=== PATIENT | female | born 1965 | race Caucasian/White ===

== ENCOUNTER 2024-04-29 15:33 | Emergency (ER) | payer OTHER, SELFPAY ==
[2024-04-29] VITALS (7 sets, daily range): BP systolic 126–144; BP diastolic 76–87
--- NOTE | 2024-04-29 15:59 | ED.GENMED ---
Addendum entered and electronically signed by Amor Wade PA-C 05/02/24 07:06:
89 urine culture shows greater than 100,000 colony-forming units of Aerococcus. On Bactrim. Sensitivities pending.
Original Note:
History of Present Illness
General
Chief Complaint: Fall
Time Seen by Provider: 04/29/24 15:34
History of Present Illness
History of Present Illness:
Patient presents to the emergency department from a memory home after she had an unwitnessed fall and walked into a wall today. She is a new resident there, EMS states that she has only been there for a few days they state that she is mentally at
her baseline with profound confusion. Patient is not able to provide any history. Attempted to call her brother Malachi who is her primary contact without success. No further information available
Discussed case with Malachi, states it is normal behavior for her to sit on the floor. states she normally has her head down so it would make sense in a new facility that she may walk into a wall
Phy Exam
Physical Exam
Physical Exam:
GENERAL APPEARANCE: NAD, well developed/ well nourished, sitting with head looking down
EYES lids/conjunctiva normal
EARS/NOSE/THROAT Mucous membranes moist, uvula midline without oral pharyngeal erythema, exudate or swelling
HEAD/NECK there is soft tissue contusion to the right frontal region, no cervical or spinal ttp
RESPIRATORY respiratory effort normal, speaks in full sentences, no accessory muscle use. Lungs clear to auscultation without rhonchi, wheezes, rales
CARDIAC Regular rate and rhythm, no edema.
ABDOMINAL Soft, ND/NT.
BACK non tender
MUSCLES/EXTREMITIES No abnormal range of motion, no swelling.
SKIN Warm, there is no bruising or contusions other than her forehead.
NEUROLOGICAL profound confusion noted. Patient is awake and alert. She is moving all extremities.
Course
Orders/Labs/Results
Orders:
Orders
04/29/24 15:53
CT Head W/o Iv Contrast Urgent
Comment:
Reason For Exam: fall, frontal contusion
04/29/24 16:20
Urinalysis Reflex To Culture Urgent
Date Specimen was Collected: 04/29/24
Time Specimen was Collected: 16:06
Urine Microscopic Reflex Cult Urgent
Urine Culture Urgent
DAVID Source: U
Specimen Description:
Date Specimen was Collected: 04/29/24
Time Specimen was Collected: 16:06
04/29/24 16:48
Electrocardiogram (*1) Urgent
Reason for Study: Fatigue / Weakness
04/29/24 17:00
Basic Metabolic Panel Urgent
Complete Blood Count/With Diff Urgent
04/29/24 17:42
Sulfamethox./Trimethoprim Ds [Bactrim Ds 800 mg/160 mg] 1 tablet PO NOW STA
04/29/24 18:26
Basic Metabolic Panel Urgent
Abnormal Lab Results
04/29/24 04/29/24 04/29/24
16:20 17:00 18:26
MPV 11.0 H fL
(7.4-10.4)
Absolute Neuts (auto) 7.4 H 10^3/uL
(1.4-6.5)
Absolute Monos (auto) 1.0 H 10^3/uL
(0.1-0.6)
Lymphocytes % 19.1 L %
(20.5-51.1)
Glucose 124 H mg/dl 112 H mg/dl
(70-99) (70-99)
Urine Ketones Trace A
(Negative)
Leukocyte Esterase Rfl Trace A
(Negative)
Urine RBC 3-6 A /HPF
(0-2)
Urine WBC (Reflex) 11-15 A /HPF
(0-5)
Urine Bacteria (Reflex) Many A
(Negative)
04/29/24 17:00
04/29/24 18:26
Vital Signs
Initial and Last Documented VS:
Initial Vital Signs
BP
126/76
04/29/24 15:33
Last Documented Vital Signs
Temp Pulse Resp BP Pulse Ox
98.1 F 88 16 127/78 99
04/29/24 15:44 04/29/24 18:00 04/29/24 18:00 04/29/24 18:00 04/29/24 16:00
*Critical Care Note
Total Time (30-74mins, 75-104mins- exclusive of procedures): Not Applicable
ED Attending Note
ED Attending Note
ED Attending Note:
No significant traumatic injury identified. Patient possibly with UTI, unable to endorse whether or not she has urinary symptoms. Will cover with antibiotics. No evidence of sepsis. She is at her baseline mental status. Discussed with patient's
Malachi GASTON. Patient to be discharged back to facility
-
Portions of this chart may have been created with voice recognition software.� Occasional wrong word or��sound alike� substitutions may have occurred due to the inherent limitations of voice recognition software.
Discharge Plan
Departure
Patient Disposition: Fpc/SNF
Date of Disposition: 04/29/24
Time of Disposition: 18:49
Discharge Problem:
UTI (urinary tract infection), Head injury
Instructions: Head Injury in Adults (DC)
Prescriptions:
New
sulfamethoxazole-trimethoprim [Bactrim DS] 800-160 mg tablet
1 tab PO BID Qty: 14 0RF
Referrals:
Pablo Delarosa, [Family Provider] -
Interventions
Interventions:
*Risk Screen - Suicide Last Done: 04/29/24 15:42
*General Assessment Last Done: 04/29/24 15:45
*Neglect/Abuse Screening Last Done: 04/29/24 15:45
ED- Fall Risk Assessment Last Done: 04/29/24 15:52
*ED COVID-19 Vaccine History Last Done: 04/29/24 15:52
*Nursing Disposition Last Done: 04/29/24 19:21
ED-Musculoskeletal Assessment Last Done: 04/29/24 15:52
ED- Neurological Assessment Last Done: 04/29/24 15:52
ED-Skin Assessment Last Done: 04/29/24 15:52
Discharge Date and Time
Discharge Date/Time: 04/29/24 19:23
Print Language: SYRIAC
[2024-04-29 16:49] LABS: Urine Albumin Trace (Neg - Trace); Urine Bilirubin Negative (Negative); Urine Character Slightly Cloudy (Clear); Urine Color Amber; Urine Glucose Negative (Negative); Urine Ketone Trace (Negative); Urine Leukocyte Trace (Negative); Urine Nitrite Negative (Negative); Urine Occult Blood Negative (Negative); Urine Specific Gravity 1.025 (<1.030); Urine Urobilinogen Negative (Neg - 1+)
[2024-04-29 17:13] LABS: % Basophils 0.5 % (0-2); % Eosinophils 0.7 % (0-6); % Immature Granulocytes 0.3 % (0-0.5); % Lymphocytes 19.1 % (20.5-51.1); % Neutrophils 70.4 % (42.2-75.2); Absolute Basophils 0.1 10^3/uL (0-0.2); Absolute Eosinophils 0.1 10^3/uL (0-0.7); Absolute Neutrophils 7.4 10^3/uL (1.4-6.5); Hematocrit 42.4 % (37.0-47.0); Mean Corpuscular Hgb 28.9 pg (27.0-31.0); Mean Corpuscular Volume 87.4 fL (81.0-99.0); Nucleated Red Blood Cells % 0 %; Platelet Count 173 10^3/uL (130-400); Red Blood Cell Count 4.85 10^6/uL (4.20-5.40); Red Cell Dist. Width 12.6 % (11.5-14.5); White Blood Cell Count 10.5 10^3/uL (4.8-10.8)
[2024-04-29 17:33] LABS: Blood Urea Nitrogen 16 mg/dl (7-17); Calcium 9.5 mg/dl (8.4-10.2); Carbon Dioxide 24 mmol/L (22-30); Chloride 103 mmol/L (98-107); Glucose 124 mg/dl (70-99); Sodium 136 mmol/L (135-145); eGFR > 60.00
[2024-04-29 17:38] LABS: Urine Bacteria Many (Negative)
[2024-04-29 18:46] LABS: Blood Urea Nitrogen 16 mg/dl (7-17); Calcium 9.7 mg/dl (8.4-10.2); Carbon Dioxide 30 mmol/L (22-30); Chloride 101 mmol/L (98-107); Glucose 112 mg/dl (70-99); Potassium 3.9 mmol/L (3.5-5.1); Sodium 139 mmol/L (135-145); eGFR > 60.00
[2024-04-29] MEDS: BACTRIM DS 800 MG/160 MG 1 TABLET PO (18:52)
--- NOTE | 2024-04-29 19:03 | EDRN ---
REport given to ZULEYKA Acuna at [facility]. Waiting for transport arrangements to be made.
== END 2024-04-29 19:23 ==
LOC: EMR 15:33
PROVIDERS: EMERGENCY PHYSICIAN Emergency Medicine; FAMILY PHYSICIAN Family Medicine
DX: N39.0 Urinary tract infection, site not specified (principal); S09.90XA Unspecified injury of head, initial encounter; W19.XXXA Unspecified fall, initial encounter; F02.80 Dementia in other diseases classified elsewhere, unspecified severity, without behavioral disturbance, psychotic disturbance, mood disturbance, and anxiety; G31.09 Other frontotemporal neurocognitive disorder
CPT/HCPCS: 99284; 70450; 80048; 81003; 81015; 85025; 87077; 87086; 93005; 99282

== ENCOUNTER → 2024-05-26 11:00 | Outpatient (REF) | payer OTHER, SELFPAY ==
[2024-05-26 17:37] LABS: Urine Albumin Trace (Neg - Trace); Urine Bilirubin Negative (Negative); Urine Character Very Cloudy (Clear); Urine Color Yellow; Urine Glucose Negative (Negative); Urine Ketone Negative (Negative); Urine Leukocyte 2+ (Negative); Urine Nitrite Positive (Negative); Urine Occult Blood Negative (Negative); Urine Specific Gravity 1.025 (<1.030); Urine Urobilinogen Negative (Neg - 1+)
[2024-05-26 19:12] LABS: Urine Bacteria Many (Negative); Urine Red Blood Cell 0-2 /HPF (0-2); Urine White Cell 50-60 /HPF (0-5)
== END ==
LOC: OLABBH 11:00
PROVIDERS: ATTENDING PHYSICIAN Family Medicine
DX: R35.0 Frequency of micturition (principal)
CPT/HCPCS: 81003; 81015; 87077; 87086

== ENCOUNTER → 2024-09-02 13:31 | Outpatient (REF) | payer OTHER, SELFPAY ==
[2024-09-02 14:17] LABS: Urine Albumin 2+ (Neg - Trace); Urine Bilirubin Negative (Negative); Urine Character Cloudy (Clear); Urine Color Yellow; Urine Glucose Negative (Negative); Urine Ketone 3+ (Negative); Urine Leukocyte 3+ (Negative); Urine Nitrite Negative (Negative); Urine Occult Blood 1+ (Negative); Urine Specific Gravity 1.025 (<1.030); Urine Urobilinogen 1+ (Neg - 1+)
[2024-09-02 14:32] LABS: Urine Bacteria Many (Negative); Urine Red Blood Cell 0-2 /HPF (0-2); Urine Squamous Cell 0-2 /LPF (Few); Urine White Cell 0-2 /HPF (0-5)
== END ==
LOC: OLABBH 13:31
PROVIDERS: ATTENDING PHYSICIAN Family Medicine
DX: R35.0 Frequency of micturition (principal)
CPT/HCPCS: 81003; 81015; 87077; 87086; 87186

== ENCOUNTER 2024-09-09 18:56 | Inpatient (IN) | payer OTHER, SELFPAY ==
[2024-09-09] VITALS (8 sets, daily range): BP systolic 105–145; BP diastolic 71–95; BMI 25.9
--- NOTE | 2024-09-09 13:27 | ED.GENMED ---
History of Present Illness
General
Chief Complaint: Urinary Symptoms
Source: patient, records and [facility]
Exam Limitations: dementia
Time Seen by Provider: 09/09/24 13:19
Nursing documentation reviewed up to this point in time: agreed with
History of Present Illness
History of Present Illness:
58-year-old female with a past medical history of frontotemporal dementia, hypertension presents to the emergency room from [facility] memory care unit; she presents for evaluation of confusion. Patient cannot meaningfully provide history
due to her severe dementia. I spoke to the staff at [facility] to obtain collateral history: At baseline patient has significant dementia but is pleasantly confused and easily redirectable. On Sunday they noted that she was a bit more confused
and she has a history of increased confusion when she has urinary tract infections. She had a urinalysis sent off that was positive for infection and she was started on Macrobid Sunday night. Despite this she has had increasing confusion over the
past few days, increasingly confrontational, over the past 24 hours refusing to take her medications which ultimately prompted them to refer her to the emergency room for treatment. They have not noted any other symptoms such as vomiting, diarrhea,
fever, chills, respiratory issues.
Review of Systems
Review of Systems
Unable to obtain full review of systems at this time due to: dementia
All Other Systems: Not applicable
Phy Exam
Physical Exam
Physical Exam:
General: Awake, alert, oriented x 1 and anxious appearing
Head: Normocephalic, atraumatic
Eyes: Conjunctiva normal, EOMI, pupils equal round and reactive to light bilaterally
Throat: Airway intact, handling secretions
Neck: Trachea midline, supple without meningismus
Lungs: Clear to auscultation bilaterally, no wheezing, rales, rhonchi
Heart: Regular rate and rhythm, no murmurs, gallops, or rubs
Abd: Soft, non distended, mild tenderness in the suprapubic region
Neuro: Follows commands, moves all extremities equally without gross deficit
Extremities: Warm and well-perfused
Scores
Heart Failure Risk
Heart Failure Risk Score: Not Applicable
Heart Score for Chest Pain Patients
STEMI patient?: Not applicable
Withdrawal Assessment of Alcohol
Withdrawal Assessment Completed?: Not applicable
Course
Orders/Labs/Results
Orders:
Orders
09/09/24 13:49
Haloperidol Lactate [Haldol] 5 mg IM NOW STA
09/09/24 13:51
Electrocardiogram (*1) Urgent
Reason for Study: QTc Monitoring
CT Head W/o Iv Contrast Urgent
Comment:
Reason For Exam: confusion
EKG- Treatment ONCE
09/09/24 13:57
Complete Blood Count/With Diff Urgent
Comprehensive Metabolic Panel Urgent
Lactate Level [Lactic Acid] Urgent
TSH Reflex To Free T4 Urgent
Blood Culture Q30M
DAVID Source: Blood/Venous
Specimen Description:
Blood Culture Q30M
DAVID Source: Blood/Venous
Specimen Description:
09/09/24 14:25
Lorazepam [Ativan] 1 mg IV NOW STA
09/09/24 15:24
Straight cath- Treatment ONCE
09/09/24 15:31
Urinalysis Reflex To Culture Urgent
Date Specimen was Collected: 09/09/24
Time Specimen was Collected: 15:30
Urine Microscopic Reflex Cult Urgent
Urine Culture Urgent
DVAID Source: U
Specimen Description:
Date Specimen was Collected: 09/09/24
Time Specimen was Collected: 15:30
09/09/24 17:33
LevoFLOXacin 750 MG/150 ML [Levaquin] 750 mg in 150 ml IV NOW
Abnormal Lab Results
09/09/24 09/09/24
13:57 15:31
MPV 12.0 H fL
(7.4-10.4)
Absolute Neuts (auto) 8.2 H 10^3/uL
(1.4-6.5)
Neutrophils % 77.0 H %
(42.2-75.2)
Lymphocytes % 15.2 L %
(20.5-51.1)
Glucose 114 H mg/dl
(70-99)
Urine Ketones 3+ A
(Negative)
Urine Bacteria (Reflex) Moderate A
(Negative)
Urine Albumin (Reflex) 1+ A
(Neg - Trace)
09/09/24 13:57
09/09/24 13:57
Vital Signs
Initial and Last Documented VS:
Initial Vital Signs
Temp Pulse Resp BP Pulse Ox
36.5 C 85 18 135/95 99
09/09/24 12:53 09/09/24 12:53 09/09/24 12:53 09/09/24 12:53 09/09/24 12:53
Last Documented Vital Signs
Temp Pulse Resp BP Pulse Ox
36.5 C 85 18 105/71 99
09/09/24 12:53 09/09/24 12:53 09/09/24 12:53 09/09/24 16:03 09/09/24 16:30
MDM/Problems Addressed
Differential Diagnosis Includes:
Confusion: Brain bleed/stroke, UTI, electrolyte derangement, polypharmacy, delirium
MDM/Problems Addressed:
58-year-old female presents with increasing confusion in the setting of recently diagnosed UTI. Vitals and exam as above. Patient has advanced dementia and is agitated and refusing care on arrival--given Haldol for agitated delirium. Will place
an IV check labs including a CBC and a CMP, urinalysis, urine culture, blood cultures. Check CT head. Reassess after the above.
Labs reviewed: CBC and CMP unremarkable. Urinalysis cloudy with positive bacteria no pyuria but results complicated by the fact that she has been on couple days of oral antibiotics. CT head negative for any acute pathology. Given refusal take
oral meds and increased confusion will admit for treatment of UTI. Discussed case with hospitalist.
Chronic conditions affecting care:
Dementia
*Pulse Oximetry
Patient hypoxic: no
*Critical Care Note
Total Time (30-74mins, 75-104mins- exclusive of procedures): Not Applicable
Data Reviewed
Source: patient, records, ambulance crew and [facility]
Patient Management
Discussion with other providers: Hospitalist (Discussed with hospitalist) and senior living staff (Spoke directly with [facility] staff)
Escalation/DeEscalation of care consider admission/obs:
Admission indicated
ED Attending Note
-
Portions of this chart may have been created with voice recognition software.� Occasional wrong word or��sound alike� substitutions may have occurred due to the inherent limitations of voice recognition software.
Discharge Plan
Departure
Patient Disposition: Admit
Date of Disposition: 09/09/24
Time of Disposition: 17:41
Admit to doctor: Kait
Presentation/result/management discussed w/ accepting MD/DO: Hospitalist
Discharge Problem:
UTI (urinary tract infection), Encephalopathy
Prescriptions:
No Action
famotidine [Pepcid] 40 mg Tablet
40 mg PO DAILY
acetaminophen [Tylenol Extra Strength] 500 mg Tablet
1,000 mg PO Q8HPRN PRN (Reason: mild pain)
venlafaxine [Effexor] 50 mg Tablet
50 mg PO BID
ibuprofen [Advil] 200 mg Tablet
200 mg PO BID
metoprolol succinate [Toprol XL] 25 mg Tablet Extended Release 24 Hr
25 mg PO DAILY
memantine 10 mg Tablet
10 mg PO BID
nitrofurantoin monohyd/m-cryst [Macrobid] 100 mg Capsule
100 mg PO BID
Rx Instructions:
for 7 days starting 09/05/24
melatonin 10 mg Tablet
10 mg PO HS
Referrals:
NONE,* [Family Provider] -
Interventions
Interventions:
*Risk Screen - Suicide Last Done: 09/09/24 12:53
*General Assessment Last Done: 09/09/24 12:53
*Neglect/Abuse Screening Last Done: 09/09/24 12:53
*ED- Fall Risk Assessment Last Done: 09/09/24 12:53
*ED COVID-19 Vaccine History Last Done: 09/09/24 12:53
ED-Female Genitourinary Assessment Last Done: 09/09/24 12:58
Discharge Date and Time
Print Language: UPPER SORBIAN
[2024-09-09] MEDS: HALDOL 5 MG IM (13:54)
[2024-09-09] MEDS: ATIVAN 1 MG IV (14:30)
[2024-09-09 14:37] LABS: % Basophils 0.7 % (0-2); % Eosinophils 0.7 % (0-6); % Immature Granulocytes 0.4 % (0-0.5); % Lymphocytes 15.2 % (20.5-51.1); Absolute Basophils 0.1 10^3/uL (0-0.2); Absolute Eosinophils 0.1 10^3/uL (0-0.7); Absolute Lymphocytes 1.6 10^3/uL (1.2-3.4); Absolute Monocytes 0.6 10^3/uL (0.1-0.6); Absolute Neutrophils 8.2 10^3/uL (1.4-6.5); Hematocrit 42.2 % (37.0-47.0); Hemoglobin 14.5 g/dL (12.0-16.0); Mean Corp Hgb Conc. 34.4 g/dL (33.0-37.0); Mean Corpuscular Hgb 29.2 pg (27.0-31.0); Mean Corpuscular Volume 84.9 fL (81.0-99.0); Nucleated Red Blood Cells % 0 %; Platelet Count 151 10^3/uL (130-400); Red Blood Cell Count 4.97 10^6/uL (4.20-5.40); Red Cell Dist. Width 12.6 % (11.5-14.5); White Blood Cell Count 10.6 10^3/uL (4.8-10.8)
[2024-09-09 14:48] LABS: Lactic Acid 1.3 mmol/L (0.7-2.0)
[2024-09-09 14:52] LABS: ALT (SGPT) 13 U/L (0-35); AST (SGOT) 20 U/L (14-36); Albumin 4.5 g/dl (3.5-5.0); Alkaline Phosphatase 70 U/L (38-126); Blood Urea Nitrogen 11 mg/dl (7-17); Calcium 9.8 mg/dl (8.4-10.2); Carbon Dioxide 23 mmol/L (22-30); Chloride 106 mmol/L (98-107); Glucose 114 mg/dl (70-99); Potassium 4.1 mmol/L (3.5-5.1); Sodium 140 mmol/L (135-145); Total Bilirubin 1.1 mg/dl (0.2-1.3); eGFR > 60.00
[2024-09-09 15:18] LABS: TSH Reflex To Free T4 0.91 uIU/ml (0.47-4.68)
[2024-09-09 16:24] LABS: Urine Albumin 1+ (Neg - Trace); Urine Bilirubin Negative (Negative); Urine Character Slightly Cloudy (Clear); Urine Color Yellow; Urine Glucose Negative (Negative); Urine Ketone 3+ (Negative); Urine Leukocyte Negative (Negative); Urine Nitrite Negative (Negative); Urine Occult Blood Negative (Negative); Urine Urobilinogen Negative (Neg - 1+)
[2024-09-09 17:15] LABS: Urine Amorphous Seen; Urine Bacteria Moderate (Negative); Urine Red Blood Cell 0-2 /HPF (0-2); Urine Squamous Cell 0-2 /LPF (Few)
[2024-09-09] MEDS: LEVAQUIN 150 IV (17:43)
--- NOTE | 2024-09-09 18:11 | HPS.HSE ---
Family Physician
-
Family Physician: * NONE
Chief Complaint
-
confusion
History of Present Illness
58-year-old female past medical history of frontotemporal dementia, hypertension, presenting to the emergency room from [facility] for confusion. Cannot provide history due to severe dementia. Has severe dementia at baseline is pleasantly
confused and easily redirectable. On Sunday day noticed that she was a bit more confused and had increased confusion which happens when she gets UTIs. She had urinalysis that is positive for infection and was started on Macrobid 4 days ago. She
has become increasingly confrontational. No fevers, chills, vomiting or shortness of breath.
Medical History
Past Medical History
Past Medical History: Reports Other (frontotemporal dementia, hypertension)
Past Surgical History: Reports None
Social History
Tobacco: Non-smoker
Alcohol: None
Drug: None
Family History
Family History: Not pertinent
Allergies / Home Medications
Allergies reflects when Allergies were last updated in [employer].
Home Medications with original date entered in [employer]
Allergy/Medication List:
Allergies
Allergy/AdvReac Type Severity Reaction Status Date / Time
acetaminophen [From Percocet] Allergy Unknown Unknown Verified 04/29/24 15:36
ceftriaxone Allergy Unknown Unknown Verified 04/29/24 15:36
oxycodone [From Percocet] Allergy Unknown Unknown Verified 04/29/24 15:36
Home Medications
acetaminophen 500 mg tablet (Tylenol Extra Strength) 1,000 mg PO Q8HPRN PRN mild pain 09/09/24
famotidine 40 mg tablet (Pepcid) 40 mg PO DAILY 09/09/24
ibuprofen 200 mg tablet (Advil) 200 mg PO BID 09/09/24
melatonin 10 mg tablet 10 mg PO HS 09/09/24
memantine 10 mg tablet 10 mg PO BID 09/09/24
metoprolol succinate 25 mg tablet,extended release 24 hr (Toprol XL) 25 mg PO DAILY 09/09/24
nitrofurantoin monohydrate/macrocrystals 100 mg capsule (Macrobid) 100 mg PO BID 09/09/24
venlafaxine 50 mg tablet 50 mg PO BID 09/09/24
Review of Systems
-
History Source: Patient
A 12 point ROS was completed and negative except as noted: Yes
Constitutional: Reports No Symptoms
EENT: Reports No Symptoms
Respiratory: Reports No Symptoms
Cardiac: Reports No Symptoms
Abdomen/GI: Reports No Symptoms
: Reports No Symptoms
Musculoskeletal: Reports No Symptoms
Skin: Reports No Symptoms
Neurological: Reports No Symptoms
Endocrine: Reports No Symptoms
Hematologic/Lymphatic: Reports No Symptoms
Psych: Reports No Symptoms
Physical Exam
Vital Signs
Vital Signs
Temp Pulse Resp BP Pulse Ox
97.7 F 85 18 139/88 99
09/09/24 12:53 09/09/24 12:53 09/09/24 12:53 09/09/24 17:42 09/09/24 17:45
Physical Exam
General: Well Developed, Well Nourished and No Apparent Distress
HEENT: NormoCephalic, Moist mucous membranes and Atraumatic
Respiratory: Clear
Cardiac: S1/S2 and Regular Rhythm; No Murmur or Rub
GI: Soft, Non Tender, Non Distended and Normal Bowel Sounds; No Organomegaly
Rectal: Deferred by Provider
Musculoskeletal: No Clubbing, No Cyanosis and No Edema
Skin: No Rash
Neuro: Nonfocal/grossly intact
Laboratory Results
-
09/09/24 13:57
09/09/24 13:57
Laboratory Results
Lactic Acid 1.3 mmol/L (0.7-2.0) 09/09/24 13:57
Total Bilirubin 1.1 mg/dl (0.2-1.3) 09/09/24 13:57
AST 20 U/L (14-36) 09/09/24 13:57
ALT 13 U/L (0-35) 09/09/24 13:57
Alkaline Phosphatase 70 U/L (38-126) 09/09/24 13:57
Data Reviewed
-
Lab Data: Labs Reviewed by me
Old Records: Reviewed
Impression/Plan
-
IMPRESSION:
PLAN:
# Acute metabolic encephalopathy likely secondary to urinary tract infection
# History of ESBL Klebsiella
- UA slightly cloudy, moderate bacteria, 3-5 WBC
- Urinalysis may normal after receiving Macrobid
-History of prior ESBL Klebsiella which was only sensitive to ertapenem, Bactrim and Zosyn
-Check urine culture
-Blood cultures pending
- IV fluids
- Given Levaquin in ER will switch to ertapenem
- Given Haldol and Ativan
Frontotemporal dementia
- Continue memantine, venlafaxine
Essential hypertension
- Continue metoprolol
Full code
DVT prophylaxis�heparin
Regular diet
[2024-09-09] MEDS: FLUSH (NSS) 1 FLUSH IV (21:37)
[2024-09-09] MEDS: NSS 1000 IV (22:13)
[2024-09-09] MEDS: NAMENDA 10 MG PO (22:13)
[2024-09-09] MEDS: MELATONIN 10 MG PO (22:13)
[2024-09-09] MEDS: MOTRIN PO (22:13)
[2024-09-09] MEDS: HEPARIN SC ×2 (22:14→22:20)
--- NOTE | 2024-09-09 23:00 | PTCARENOTE ---
Pt admitted to 412-2 from ED. Pulled over to bed. Oriented to self, drowsy. 1:1 at bedside. Call ni within reach.
[2024-09-09] MEDS: INVANZ 60 MG IV (23:58)
[2024-09-10 07:25] VITALS: BP 151/82
[2024-09-10 07:45] LABS: % Basophils 0.7 % (0-2); % Eosinophils 1.4 % (0-6); % Immature Granulocytes 0.2 % (0-0.5); % Lymphocytes 18.8 % (20.5-51.1); % Monocytes 9.1 % (1.7-9.3); % Neutrophils 69.8 % (42.2-75.2); Absolute Basophils 0.1 10^3/uL (0-0.2); Absolute Eosinophils 0.1 10^3/uL (0-0.7); Absolute Lymphocytes 1.7 10^3/uL (1.2-3.4); Absolute Monocytes 0.8 10^3/uL (0.1-0.6); Absolute Neutrophils 6.3 10^3/uL (1.4-6.5); Hematocrit 40.2 % (37.0-47.0); Hemoglobin 13.9 g/dL (12.0-16.0); Mean Corp Hgb Conc. 34.6 g/dL (33.0-37.0); Mean Corpuscular Volume 83.9 fL (81.0-99.0); Nucleated Red Blood Cells % 0 %; Red Blood Cell Count 4.79 10^6/uL (4.20-5.40); Red Cell Dist. Width 12.7 % (11.5-14.5)
[2024-09-10 08:20] LABS: ALT (SGPT) 11 U/L (0-35); AST (SGOT) 18 U/L (14-36); Albumin 3.7 g/dl (3.5-5.0); Alkaline Phosphatase 61 U/L (38-126); Blood Urea Nitrogen 9 mg/dl (7-17); Calcium 9.3 mg/dl (8.4-10.2); Carbon Dioxide 23 mmol/L (22-30); Chloride 108 mmol/L (98-107); Estimated Creatinine Clearance 91 ml/min; Glucose 93 mg/dl (70-99); Potassium 4.2 mmol/L (3.5-5.1); Sodium 140 mmol/L (135-145); Total Bilirubin 0.9 mg/dl (0.2-1.3); Total Protein 5.9 g/dl (6.3-8.2); eGFR > 60.00
[2024-09-10] MEDS: NAMENDA 10 MG PO ×2 (08:46→19:39)
[2024-09-10] MEDS: PEPCID 40 MG PO (08:46)
[2024-09-10] MEDS: MOTRIN 200 MG PO ×2 (08:46→19:39)
[2024-09-10] MEDS: HEPARIN 5000 UNITS SC (08:46)
[2024-09-10 10:09] LABS: COVID-19 Antigen Negative (Negative)
--- NOTE | 2024-09-10 10:44 | CM ---
Addendum entered by Shane Benites 09/10/24 15:50:
Per nurse, patient poss for d/c tomorrow according to hospitalist. Patient requiring one to one due to pulling out IV, angry and wanting to leave
Clarified w/ Kaykay/nurse at [facility] that patient will need to be off of the one to one for 24 hours
Addendum entered by Shane Benites 09/10/24 11:09:
CM received call from Kaykay/nurse at [facility], asking for updates but was told by nurse she was unable as she is not listed as a contact. Patient currently has self listed as contact. CM was informed that patient has a brother who is the
POA, Malachi ([phone]).
CM spoke w/ Malachi, confirmed he is the POA and will send CM an email w/ paperwork. In the meantime, Malachi granted permission for Kaykay to be listed as an additional contact for the care team to communicate with. Malachi asking for hospitalist to
give him a call as he has some concern about one of patient's medications. TT Dr Aubree Taylor to make aware.
Updated Lizzette/admissions to add contacts
Original Note:
Initial assessment completed. Patient is a resident at [facility]. CM spoke w/ Indy/LOTTIE for information. Patient is a 58-year-old female past medical history of frontotemporal dementia, hypertension, presenting to the
emergency room from [facility] for confusion.
Per Indy, patient is independent w/ walking, no device required. Assisted w/ personal care and toileting, patient is able to brush her teeth independently, can follow basic directions. Patient's baseline is AOX1 but is considered higher
functioning.
PCP: James Barrientos
Pharmacy: [facility]
Report (LOTTIE): [phone]

Plan: Anticipate return to facility. CM will watch for any needs
[2024-09-10] MEDS: NSS 1000 IV (11:24)
--- NOTE | 2024-09-10 14:26 | PTCARENOTE ---
Addendum entered by Moraima White RN 09/10/24 17:37:
Patient became agitated and angry and insistent on going home. Patient pulled out one IV line. MD notified. 2 mg of IV Haldol given as per order. Approximately 45 minutes later, patient attempting to get OOB and leave and adamant that she wants to
leave. Attempted to calm patient down with no success. Two nurses were in room when patient became upset, agitated and aggressive. MD notified. Medications administered as ordered.
Original Note:
Patient sleeping throughout the day. Patient only oriented to name. Reoriented as needed. Patient answers yes and no to questions. Patient mostly nonverbal. Bed alarm maintained. Patient on one to one at this time that will be discontinued at 1500.
Patient without attempts to pull lines.
--- NOTE | 2024-09-10 14:32 | W.PN.HOSP.TC ---
Addendum entered and electronically signed by Jac Taylor MD 09/10/24 18:19:
Patient had a code purple at 1700 as was getting aggressive and angry
Patient was provided Haldol 1 mg just over before, required to be given 2 more milligrams
Psychiatry informed about the update
Original Note:
Today's Communication/Plan
-
ct a/p
switch invanz to rocephin
add risperidal prn
Assessment / Plan
Assessment / Plan
1. History of frontotemporal dementia
Behavioral issue
- Patient brought in for being confrontational/agitated, currently in [facility] memory care unit
- Currently on memantine by primary neurology, cannot
- Discussed with patient brother who said patient was on high dose of Risperdal which was discontinued
- There was concern of UTI as well although UA is not significantly concerned
- After discussion starting patient on Risperdal half milligram twice daily as needed for agitation episode
2. Rule out UTI
- Urinalysis showing only bacteria, not 3-5 WBC
- Patient was complaining some left lower abdominal discomfort, a CT abdomen pelvis showed questionable bladder wall thickening
- With history of ESBL organism patient was given ertapenem, no clear reason to consider there is a MDR organism UTI at this time around
- Giving empiric Rocephin and likely can be discontinued at discharge
3. Essential hypertension
- Maintained on home dose of metoprolol
4. Depression
- maintain on effexor
DVT PPX - heparin subq
Full code
care plan discussed with patient brother over the phone
Anticipated Discharge: Within 24 hours
Subjective/Interval History
-
Date of Service: September 10, 2024
Comfortably in bed
Bed sitter at bedside, no reported agitation
Afebrile overnight
Some left lower quadrant discomfort
Objective Data
-
Labs:
Laboratory Results
09/10/24
07:08
WBC 9.0
Hgb 13.9
Hct 40.2
Plt Count
Sodium 140
Potassium 4.2
Chloride 108 H
Carbon Dioxide 23
BUN 9
Creatinine 0.6
Glucose 93
Calcium 9.3
Total Bilirubin 0.9
AST 18
ALT 11
Alkaline Phosphatase 61
Vital Signs:
Vital Signs
Temp Pulse Resp BP Pulse Ox
98.6 F 85 16 151/82 97
09/10/24 07:25 09/10/24 07:25 09/10/24 07:25 09/10/24 07:25 09/10/24 07:25
I&O
09/09/24 09/10/24 09/11/24
06:59 06:59 06:59
Intake Total 640 / 640
Balance 640 / 640
Review of Systems
-
Unable to obtain full review of systems at this time due to: Dementia
Physical Exam
-
General: No Apparent Distress and Comfortable
HEENT: Negative Oxygen
Respiratory: Clear to Auscultation
Cardiac: Regular Rhythm and S1/S2; Negative Murmur or Rub
GI: Soft and Tender (LLQ)
Musculoskeletal: No Edema
Neuro: No Motor Deficits
Psych: Calm
[2024-09-10] MEDS: RISPERDAL ORAL SOLUTION 0.5 MG PO ×2 (15:25→19:40)
[2024-09-10 15:57] VITALS: BP 141/67
[2024-09-10] MEDS: HALDOL 1 MG IV ×2 (16:26→22:27)
[2024-09-10] MEDS: STERILE WATER FOR INJECTION 2.1 ML IM ×2 (17:01→23:37)
[2024-09-10] MEDS: ZYPREXA 10 MG IM ×2 (17:01→23:37)
[2024-09-10] MEDS: HALDOL 2 MG IV (17:05)
[2024-09-10] MEDS: HEPARIN SC (19:39)
[2024-09-10] MEDS: MELATONIN 10 MG PO (21:24)
--- NOTE | 2024-09-10 22:00 | PTCARENOTE ---
Addendum entered by Latonya White RN 09/11/24 00:42:
Pt still frequently getting OOB, ambulating hallway trying to leave and attempting to get in roommates bed. Pt becoming unsteady, EARL Herring notified and ordered IM zyprexa. Medication given. Bed alarm in place.
Original Note:
Pt getting OOB frequently and unable to be redirected. Pt getting agitated and stating she 'wants to leave,' emotional support provided. EARL Herring notified and ordered stat dose IV Haldol. bed alarm in place.
--- NOTE | 2024-09-10 23:24 | W.PN.UPDATE ---
Update Note
Progress Note Update
Patient had multiple episodes of agitation and trying to leave during the night. Staff not able to redirect. 1mg of IV Haldol x2, one time Zyprexa 10mg given, and soft restraint applied for the patient`s safety.
[2024-09-10 23:51] VITALS: BP 148/96
--- NOTE | 2024-09-11 01:21 | PTCARENOTE ---
Pt continues to get OOB, going into hallway to try to leave, agitated and unable to be redirected. Nevaeh ELLIOTT made aware, orders in for 1 mg Haldol IV and upper limb restraints.
[2024-09-11] MEDS: HALDOL 1 MG IV (01:47)
--- NOTE | 2024-09-11 06:27 | DOWNTIME ---
There was a [email or web address] Downtime on 09/11/2024 from 0200 to 09/12/2023 at 0318 . Downtime documentation of patient's care, including medication administrations, has been reconciled in the electronic record per guidelines. Refer to the
patient's paper chart under the miscellaneous tab to see printed paper medication records and downtime forms.
[2024-09-11 07:14] VITALS: BP 143/87
[2024-09-11] MEDS: NAMENDA 10 MG PO (07:29)
[2024-09-11] MEDS: HEPARIN 5000 UNITS SC (07:29)
[2024-09-11] MEDS: MOTRIN 200 MG PO (07:29)
[2024-09-11] MEDS: PEPCID 40 MG PO (07:29)
[2024-09-11] MEDS: RISPERDAL ORAL SOLUTION 0.5 MG PO (07:30)
[2024-09-11] MEDS: NSS IV (07:41)
[2024-09-11 08:54] LABS: Hematocrit 39.3 % (37.0-47.0); Hemoglobin 14.2 g/dL (12.0-16.0); Mean Corp Hgb Conc. 36.1 g/dL (33.0-37.0); Mean Corpuscular Hgb 29.9 pg (27.0-31.0); Mean Corpuscular Volume 82.7 fL (81.0-99.0); Mean Platelet Volume 11.9 fL (7.4-10.4); Platelet Count 143 10^3/uL (130-400); Red Blood Cell Count 4.75 10^6/uL (4.20-5.40); Red Cell Dist. Width 12.7 % (11.5-14.5)
--- NOTE | 2024-09-11 09:56 | W.PN.UPDATE ---
Update Note
Progress Note Update
reviewed chart will see patient shortly. noted she had been on effexor 50 mg bid. called pharmacy to make sure this was recent (formerly [facility] pharmacy services her memory care unit). she was on it up until admit. 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
perhaps that is contributing to inc agitation here . will restart 75 mg daily extended release and can continue taper from there.
--- NOTE | 2024-09-11 10:39 | CM ---
Addendum entered by TREV Haile 09/11/24 11:37:
IMM completed, reviewed with Kaykay. On chart.
Original Note:
Received notification that patient is medically stable for discharge. Placed a call to Kaykay at [facility] [phone] who confirmed that she can take patient back today. Report [phone]
Will complete medical necessity for transfer and transfer sheet.
Plan: Case management will continue to follow and assist with discharge planning. Back to [facility] today.
--- NOTE | 2024-09-11 10:57 | W.PN.HOSP.TC ---
Today's Communication/Plan
-
Discharge memory care today
Assessment / Plan
Assessment / Plan
1. History of frontotemporal dementia
Behavioral issue
- Patient brought in for being confrontational/agitated, currently in [facility] memory care unit
- Currently on memantine by primary neurology, cannot
- Discussed with patient brother who said patient was on high dose of Risperdal which was discontinued
- There was concern of UTI as well although UA is not significantly concerned
- After discussion starting patient on Risperdal half milligram twice daily as needed for agitation episode
2. Ruled out UTI
- Urinalysis showing only bacteria, not 3-5 WBC
- Patient was complaining some left lower abdominal discomfort, a CT abdomen pelvis showed questionable bladder wall thickening
- With history of ESBL organism patient was given ertapenem, no clear reason to consider there is a MDR organism UTI at this time around
- Giving empiric Rocephin and likely can be discontinued at discharge
3. Essential hypertension
- Maintained on home dose of metoprolol
4. Depression
- maintain on effexor
DVT PPX - heparin subq
Full code
care plan discussed with patient brother over the phone
Anticipated Discharge: Today
Subjective/Interval History
-
Date of Service: September 11, 2024
Patient seen and examined at bedside, currently on soft restraint, cannot provide interval history.
Objective Data
-
Labs:
Laboratory Results
09/11/24 09/11/24
08:33 09:44
WBC 9.0
Hgb 14.2
Hct 39.3
Plt Count 143
Sodium Cancelled Pending
Potassium Cancelled Pending
Chloride Cancelled Pending
Carbon Dioxide Cancelled Pending
BUN Cancelled Pending
Creatinine Cancelled Pending
Glucose Cancelled Pending
Calcium Cancelled Pending
Vital Signs:
Vital Signs
Temp Pulse Resp BP Pulse Ox
98 F 95 16 143/87 99
09/11/24 07:14 09/11/24 07:14 09/11/24 07:14 09/11/24 07:14 09/11/24 07:14
I&O
09/10/24 09/11/24 09/12/24
06:59 06:59 06:59
Intake Total 640 / 640 720 / 720
Balance 640 / 640 720 / 720
Physical Exam
-
General: Well Nourished and Other (Not oriented)
HEENT: Normocephalic, Atraumatic, Moist Mucous Membranes, No Ptosis, PERRLA and Nose Appears Normal
Respiratory: Clear to Auscultation and Non Labored Respirations
Cardiac: Regular Rhythm and S1/S2
Breast: Deferred by me
GI: Soft, Nontender, Nondistended and Normal Bowel Sounds
Genito-urinary: No Costovertebral Tender
Musculoskeletal: No Clubbing, No Cyanosis and No Edema
Skin: Warm
Neuro: Oriented and AO x 3
Psych: Confused and Agitated
[2024-09-11 11:09] VITALS: BP 120/86
[2024-09-11] MEDS: EFFEXOR XR 75 MG PO (11:13)
--- NOTE | 2024-09-11 11:24 | PTCARENOTE ---
Addendum entered by Moraima White RN 09/11/24 13:23:
Peripheral IV removed. Ambulance transport scheduled for 1330. [facility] aware that patient will be returning today.
Original Note:
Patient ambulating in halls independently with staff member. No need for sedatives or other medications prn. Urine culture negative for growth. Vital signs stable. MD in agreement that patient medically stable for discharge back to [facility]
today. engineering design manager made aware. Transportation arranged for 130pm today. Discharge orders in system.
--- NOTE | 2024-09-11 12:02 | CON.MD ---
Consultation - Medical
-
patient seen chart reviewed. discussed with nursing. the patient is a 58 year old woman who was admitted to [facility] of confusion and change in mental status. she has hx of fronto temporal dementia and head injury in apr. she is normally
pleasantly confused but of late she had become more irritable. she was noted to have uti a past source of change in mental status several days ago but at present her urine cultures and blood culture have shown no growth. she resides in a memory
care unit locally. she has had periods of agitation here as she wants to be up and about and there is fear of her falling. she had received prn haldol for agitation yesterday. this morning when i saw her she was walking about the unit with a
assisted living nursing director monitoring and was cooperative and relatively pleasant. her current meds include risperdal o.5 mg bid memantine 10 mg and melatonin 10 mg po q hs. i check with pharmacy which was filling [facility] [place] [facility] and she was taking effexor
50mg bid which was not continued here at . the patient is unable to give any information given dementia which is severe.
past psych hx dementia head injury
medical patient w hx uti there is urine culture + for klebsiella in the recent past but most recent shows no growth. cat scan brain with no new findings. cbc ok chem ok today's chemistry reads 'pending' ecg w qtc 462 read as prolonged qtc. hx
gerd htn
substance abuse none
fh non contributory
social resides at [facility]. patient did tell me she 'was' . she resides in [place] care at a local [facility] alert but not oriented to place or time. speech and thought process disorganized. patient occasionally answered questions but not clear whether answers were accurate. she was pleasant and calm when seen by this food writer. cognition impaired
insight judgment lacking
dx dementia with behavioral disturbance
plan since patient now is calm would not change meds she is currently prescriged except the folllowing: restarted effexor at a slightly lower dose (she was on 50 mg bid of immediate release) and now ordered at total 75 mg extended release daily .
the reason it was restarted is that stopping effexor can cause an uncomfortable wd syndrome which could possibly have contributed to her agitation noted here. nursing has been in touch with her facility which is willing to take her back as there
is at this point no medical reason for her to be here and she would be more comfortable in a setting familiar to her and tailored to her needs. psych will sign off.
--- NOTE | 2024-09-11 14:15 | W.DCSUMMARY ---
Discharge Summary
Discharge Data
Date of Admission: 09/09/24
Date of Discharge: 09/11/24
-
Pending Results: No
Hospital Course
Hospital course
Admitted with worsening mental status, urinalysis shows no evidence of UTI.
Seen by psych, adjusted psych medications.
Will be discharged back to memory care
During hospitalization patient was treated from the [facility]
1. History of frontotemporal dementia
Behavioral issue
- Patient brought in for being confrontational/agitated, currently in [facility] memory care unit
- Currently on memantine by primary neurology, cannot
- Discussed with patient brother who said patient was on high dose of Risperdal which was discontinued
- There was concern of UTI as well although UA is not significantly concerned
- After discussion starting patient on Risperdal half milligram twice daily as needed for agitation episode
2. Ruled out UTI
- Urinalysis showing only bacteria, not 3-5 WBC
- Patient was complaining some left lower abdominal discomfort, a CT abdomen pelvis showed questionable bladder wall thickening
- With history of ESBL organism patient was given ertapenem, no clear reason to consider there is a MDR organism UTI at this time around
- Giving empiric Rocephin and likely can be discontinued at discharge
3. Essential hypertension
- Maintained on home dose of metoprolol
4. Depression
- maintain on effexor
DVT PPX - heparin subq
Full code
care plan discussed with patient brother over the phone
Anticipated Discharge: Today
Total time spent on today's encounter was 40 minutes which included time spent in counseling the patient/family regarding diagnosis and treatment plan as listed above, goals of care, and symptom management. Case was discussed with nursing staff,
specialists, and care coordinators/case management. All labs and imaging personally reviewed by me. Remainder the time spent in detailed review of previous records, lab data, imaging, and other medical provider documentation.
Anticipated Discharge: Today
Discharge Plan
-
Patient Disposition: Long Term/SNF
Discharge Diagnosis/Procedures: Frontotemporal dementia.
Combative behavior.
Hypertension.
Depression
Condition: Fair
Diet: Regular
Activity: With assistance and As tolerated
Referrals:
James Barrientos MD [Family Provider] -
Rommel Spears MD [Active] -
Additional Discharge Medication Instructions: Effexor 75 mg extended release may need to be tapered slowly until stop completely
Prescriptions:
New
risperidone 0.5 mg tablet
0.5 mg PO BIDPRN PRN (Reason: agitations) Qty: 60 0RF
venlafaxine 75 mg capsule,extended release 24hr
75 mg PO DAILY Qty: 30 0RF
Continued
famotidine [Pepcid] 40 mg Tablet
40 mg PO DAILY
acetaminophen [Tylenol Extra Strength] 500 mg Tablet
1,000 mg PO Q8HPRN PRN (Reason: mild pain)
ibuprofen [Advil] 200 mg Tablet
200 mg PO BID
metoprolol succinate [Toprol XL] 25 mg Tablet Extended Release 24 Hr
25 mg PO DAILY
memantine 10 mg Tablet
10 mg PO BID
melatonin 10 mg Tablet
10 mg PO HS
Discontinued
venlafaxine [Effexor] 50 mg Tablet
50 mg PO BID
nitrofurantoin monohyd/m-cryst [Macrobid] 100 mg Capsule
100 mg PO BID
Rx Instructions:
for 7 days starting 09/05/24
Discharge Orders:
Discharge Patient (As Directed); Ordered 09/11/24
Ordered By: Zenobia Pérez
Discharge Date and Time
Discharge Date/Time: 09/11/24 13:57
Print Language: ARMENIAN
== END 2024-09-11 13:57 | DRG 57 ==
LOC: 4 EAST ACU 18:56
PROVIDERS: Hospitalist; ADMITTING PHYSICIAN Hospitalist; ATTENDING PHYSICIAN General Practice; CONSULT PHYSICIAN Psychiatry & Neurology Psychiatry; EMERGENCY PHYSICIAN Emergency Medicine; FAMILY PHYSICIAN Family Medicine
DX: G31.09 Other frontotemporal neurocognitive disorder (principal); F02.C3 Dementia in other diseases classified elsewhere, severe, with mood disturbance; F02.C11 Dementia in other diseases classified elsewhere, severe, with agitation; F32.A Depression, unspecified; I10 Essential (primary) hypertension; Z79.899 Other long term (current) drug therapy; Z11.52 Encounter for screening for COVID-19
CPT/HCPCS: 70450; 74177; 80053; 81003; 81015; 83605; 84443; 85025; 85027; 87040; 87070; 87086; 87811; 93005; 96372; 96374; 96375; 99285; J1335; J2358; Q9967

== ENCOUNTER → 2025-03-02 13:00 | Outpatient (REF) | payer OTHER, SELFPAY ==
[2025-03-03 13:17] LABS: Urine Character Clear (Clear)
[2025-03-03 14:41] LABS: Urine Squamous Cell >30 /LPF (Few)
[2025-03-03 14:56] LABS: Urine White Cell 70-80 /HPF (0-5)
== END ==
LOC: OLABBH 13:00
PROVIDERS: ATTENDING PHYSICIAN Family Medicine
DX: R41.0 Disorientation, unspecified (principal); R10.9 Unspecified abdominal pain
CPT/HCPCS: 81003; 81015; 87077; 87086; 87186